=== PATIENT | female | born 1990 | race Caucasian/White ===

== ENCOUNTER 2017-05-07 16:46 | Inpatient (IN) | payer OTHER ==
[~2017-05-07] VITALS: Ht 172.7 cm; Wt 78.6 kg
[~2017-05-07 16:46] MED LIST: MOTRIN 600600 MG/TAB PO; PRENATAL1 TA1 PO
[2017-06-20] VITALS (30 sets, daily range): BP systolic 95–136; BP diastolic 58–85; PULSE 66–134; TEMP 97.7
[2017-06-20 08:20] LABS: BASO # 0.1 (0.0-0.2); BASO % 0.7 % (0.0-2.0); EOS % 0.4 % (0-4.0); GRAN # 4.8 (1.4-6.5); GRAN % 67.3 % (42.2-75.2); HEMOGLOBIN 12.3 g/dl (12.5-16.0); LYMPH # 1.7 (1.2-3.4); LYMPH % 23.2 % (20.0-51.0); MEAN CELL VOLUME 85 fl (80.0-100.0); MEAN CORPUSCULAR HEMOGLOBIN 29 pg (27.0-31.0); MEAN CORPUSCULAR HGB CONC 34 g/dl (33.0-37.0); MEAN PLATELET VOLUME 9.6 fl (7.4-10.4); MONO # 0.6 (0.1-0.6); PLATELET COUNT 214 K/mm3 (130-400); RED BLOOD COUNT 4.28 M/mm3 (4.10-5.30); REDCELL DISTRIBUTION WIDTH-CV 13.4 % (11.5-14.5)
[2017-06-20 08:31] LABS: HEMATOCRIT 36.4 % (37.0-47.0)
[2017-06-21 05:30] VITALS: BP 103/52; PULSE 93
[2017-06-21 08:48] VITALS: BP 97/59; PULSE 76; TEMP 97.6
[2017-06-21] MEDS ORDERED: IBU800 M1 PO (10:03)
[2017-06-21 16:31] VITALS: BP 94/75; PULSE 74; TEMP 98
[2017-06-21 19:05] VITALS: BP 97/59; PULSE 68; TEMP 98.3
[2017-06-22 07:29] VITALS: BP 108/56; PULSE 75; TEMP 98
== END 2017-06-22 11:40 | disposition home or self-care (01) | DRG 775 ==
LOC: LDR 06-20 06:46 → OB 06-20 16:30 → LDR 06-27 16:45
PROVIDERS: Student in an Organized Health Care Education/Training Program
PROC: 10E0XZZ Delivery of Products of Conception, External Approach (ICD-10-PCS; principal; 2017-06-20)
PROC: 0KQM0ZZ Repair Perineum Muscle, Open Approach (ICD-10-PCS; 2017-06-20)
PROC: 3E033VJ Introduction of Other Hormone into Peripheral Vein, Percutaneous Approach (ICD-10-PCS; 2017-06-20)
DX: O99.824 Streptococcus B carrier state complicating childbirth (principal); O70.1 Second degree perineal laceration during delivery; O69.81X0 Labor and delivery complicated by cord around neck, without compression, not applicable or unspecified; Z3A.39 39 weeks gestation of pregnancy; Z37.0 Single live birth
CPT/HCPCS: J2210; J2405; J2540; J2590; J2795; J7060; J7120

== ENCOUNTER 2022-09-25 09:38 | Inpatient (IN) | payer OTHER ==
[~2022-09-25] VITALS: Ht 172.7 cm; Wt 83.7 kg
[2022-09-25] VITALS (27 sets, daily range): BP systolic 110–163; BP diastolic 69–88; PULSE 65–128; TEMP 97.5–97.8
[~2022-09-25 09:38] MED LIST changes: +IBU800 M1 PO
--- NOTE | 2022-09-25 09:50 | NUR ---
0950 PT AMBULATORY TO UNIT WITH SPOUSE. CHANGED INTO GOWN AND COMFORTABLE IN BED. 100O PT ON MONITOR, EFM TRACING CAT 1. IV STARTED, LR AND OXYTCIN STARTED. PT COMFORTABLE WITH POC.
--- NOTE | 2022-09-25 10:40 | NUR ---
DR. BRISENO IN ROOM TO DISCUSS PLAN OF CARE WITH PATIENT. PATIENT WANTS EPIDURAL BEFORE AROM. PT FEELING CONTRACTIONS. WILL FOLLOW POC.
[2022-09-25 11:09] LABS: BASO # 0.1 K/mm3 (0.0-0.2); BASO % 0.7 % (0.0-2.0); EOS % 0.3 % (0.0-4.0); GRAN # 4.8 K/mm3 (1.4-6.5); HEMATOCRIT 37.7 % (37.0-47.0); HEMOGLOBIN 12.4 g/dl (12.5-16.0); LYMPH # 1.6 K/mm3 (1.2-3.4); LYMPH % 23.5 % (20.0-51.0); MEAN CELL VOLUME 87 fl (80.0-100.0); MEAN CORPUSCULAR HEMOGLOBIN 29 pg (27-31); MEAN CORPUSCULAR HGB CONC 33 g/dl (33.0-37.0); MONO # 0.4 K/mm3 (0.1-0.6); MONO % 6.2 % (1.7-9.3); PLATELET COUNT 232 K/mm3 (130-400); RED BLOOD COUNT 4.32 M/mm3 (4.10-5.30); REDCELL DISTRIBUTION WIDTH-CV 14.4 % (11.5-14.5)
--- NOTE | 2022-09-25 12:40 | NUR ---
1240 CHAVEZ CATHETER PLACED. PT TOLERATED WELL. 1245 SVE /-2. PT TOLERATED WELL. FEELING PRESSURE FROM CATHETER.
--- NOTE | 2022-09-25 14:40 | NUR ---
1440 IN ROOM FOR SVE. SVE COMPLETE +1 STATION. ROOM SET FOR DELIVERY. CHARGE AND NURSERY NOTIFIED. 1446 PT BEGINS PUSHING. GOOD MATERNAL EFFORT. 1455 OF VIABLE MALE INFANT PER DR. BRISENO. CORD CLAMPED, PLACED ON MATERNAL ABDOMEN AND CARE ASSUMED BY SHOAIB ROLLE RN. MATERNAL VITAL SIGNS STABLE. LOCJOEA WNL. DR. BRISENO BEGINS REPAIR OF SECOND DEGREE LACERATION. VAGINAL CYST NOTED ON PERINEUM FROM PREVIOUS REPAIR. CYST REMOVED AT THIS TIME. [address] BRISENO. PT TOLERATED WELL. FUNDUS FIRM, AT UMBILICUS. BED PUT BACK TOGETHER. PT COMFORTABLE. PRINCE WNL.
--- NOTE | 2022-09-25 17:20 | NUR ---
1720 PT UP TO BATHROOM. VOIDED, CHANGED PAD, UNDERWEAR AND GOWN. PT AMBULATORY HALF WAY TO ROOM THEN REQUESTS WHEELCHAIR. PT TOLERATED WELL.
[2022-09-26 03:30] VITALS: BP 110/77; PULSE 62; TEMP 97.9
[2022-09-26] MEDS ORDERED: IBU800 M1 PO (09:00)
--- NOTE | 2022-09-26 10:29 | NUR ---
Initial visit; Parents thanked Management Recruiter for offering congratulations and God's blessings for the of their son. Management Recruiter thanked family for choosing [place].
--- NOTE | 2022-09-26 11:15 | NUR ---
This nurse received report from Kailee Malloy RN. Pt is stable, lochisarah WNL, is current with immunizations, assessment and VS completed "just not charted yet", has DC order in, may need Tylenol, and pt expressed wishes to go home today. This nurse resumes care.
--- NOTE | 2022-09-26 12:22 | NUR ---
Pt is currently attempting to breastfeed during this nurse hourly rounding.
--- NOTE | 2022-09-26 14:27 | NUR ---
Pt roused awake from sleeping during this nurse hourly rounding. Pt denies questions, concerns, and needs.
--- NOTE | 2022-09-26 17:00 | NUR ---
This nurse at pt bedside to discus DC POC. This nurse educated pt on vaginal , interventions, infections/illness, and to keep follow up/scheduled appointments. Pt given DC summary and health summary. Pt summary signed, obtained, and witnessed. This nurse accompanied pt with belongings in tow, with pt spouse holding pt baby transported in carseat, ambulating off unit at 1700. This nurse witnessed pt spouse put baby in carseat locked into carseat base with an audible click.
== END 2022-09-26 17:00 | disposition home or self-care (01) | DRG 807 ==
LOC: LDR 09:38 → OB 09:38
PROVIDERS: ADMIT Student in an Organized Health Care Education/Training Program
PROC: 10E0XZZ Delivery of Products of Conception, External Approach (ICD-10-PCS; principal; 2022-09-25)
PROC: 0KQM0ZZ Repair Perineum Muscle, Open Approach (ICD-10-PCS; 2022-09-25)
PROC: 3E033VJ Introduction of Other Hormone into Peripheral Vein, Percutaneous Approach (ICD-10-PCS; 2022-09-25)
DX: O70.1 Second degree perineal laceration during delivery (principal); Z37.0 Single live birth; Z3A.39 39 weeks gestation of pregnancy
CPT/HCPCS: J2590; J2795; J7120